=== PATIENT | male | born 1975 | race Caucasian/White ===

== ENCOUNTER 2021-11-10 20:14 | Emergency (ER) | payer OTHER ==
[2021-11-10 20:27] VITALS: TEMP 98.9
[2021-11-10 20:35] VITALS: RESP 16
[2021-11-10 21:02] VITALS: BP 153/91
[2021-11-10] MEDS ORDERED: SODIUM CHLORIDE 0.9% 50 ML IVPB ONE (21:15)
[2021-11-10] MEDS ORDERED: BAMLANIVIMAB (EUA) 700 MG, ETESEVIMAB (EUA) 1,400 MG in SODIUM CHLORIDE 0.9% 50 ML IVPB ONE (21:30)
--- NOTE | 2021-11-10 21:32 | ED ---
General Adult HPI - General Chief complaint: Upper Respiratory Infection Stated complaint: Chills, No taste and smell Time Seen by Provider: 11/10/21 20:29 Source: patient, RN notes reviewed Mode of arrival: ambulatory Limitations: no limitations - History of Present Illness Initial comments: 46-year-old male presents to the emergency room for a chief complaint of possible COVID-19. Patient states he was exposed by his friends a few days ago. Patient states yesterday he started to have chills and body aches. He states he lost his taste and smell. He denies shortness of breath or chest pain. Patient states he wants to be tested and if he has positive get the antibody infusion.Patient has no other complaints at this time including shortness of breath, chest pain, abdominal pain, nausea or vomiting, headache, or visual changes. - Related Data Allergies Allergy/AdvReac Type Severity Reaction Status Date / Time No Known Allergies Allergy Verified 11/10/21 20:24 Review of Systems ROS Statement: Those systems with pertinent positive or pertinent negative responses have been documented in the HPI. ROS Other: All systems not noted in ROS Statement are negative. Past Medical History Past Medical History: No Reported History History of Any Multi-Drug Resistant Organisms: None Reported Past Surgical History: Appendectomy, Orthopedic Surgery Past Psychological History: No Psychological Hx Reported Smoking Status: Former smoker Past Alcohol Use History: None Reported Past Drug Use History: Marijuana General Exam Limitations: no limitations General appearance: alert, in no apparent distress Head exam: Present: atraumatic Eye exam: Present: normal appearance, PERRL, EOMI. Absent: scleral icterus, conjunctival injection ENT exam: Present: normal exam, mucous membranes moist Neck exam: Present: normal inspection, full ROM. Absent: tenderness Respiratory exam: Present: normal lung sounds bilaterally. Absent: respiratory distress, wheezes Cardiovascular Exam: Present: regular rate, normal rhythm, normal heart sounds Course Vital Signs 11/10/21 11/10/21 11/10/21 20:24 20:34 21:02 Temperature 98.9 F Pulse Rate 81 Respiratory 20 16 Rate Blood Pressure 136/84 153/91 O2 Sat by Pulse 96 Oximetry Medical Decision Making - Medical Decision Making Vitals are stable. Patient is 96% on room air. He is well-appearing. He has minimal symptoms of COVID-19 since yesterday. He did test positive. He was given antibody infusion and monitored for 1 hour. stable for outpatient follow- up. Patient discharged home with strict return parameters. - Lab Data Lab Results 11/10/21 Range/Units 20:34 Coronavirus (PCR) Detected A (Not Detectd) Disposition Clinical Impression: COVID-19 Disposition: HOME SELF-CARE Condition: Good Instructions (If sedation given, give patient instructions): Coronavirus Disease 2019 (COVID-19) Additional Instructions: Please take Motrin and Tylenol for fevers or body aches. Take vitamin C, D, and zinc. Follow-up with your doctor in one to 2 days. Return to the emergency room for any worsening symptoms. Is patient prescribed a controlled substance at d/c from ED?: No Referrals: Gamal Emerson Jr, DO [Primary Care Provider] - 1-2 days Time of Disposition: 21:31
[2021-11-10 22:20] VITALS: PULSE 70
== END 2021-11-10 22:19 | disposition home or self-care (01) ==
LOC: EC 20:14
DX: U07.1 COVID-19 (principal); Z87.891 Personal history of nicotine dependence
CPT/HCPCS: 87635; 99283; J3490

== ENCOUNTER 2023-10-24 18:02 | Emergency (ER) | payer OTHER ==
--- NOTE | 2023-10-24 19:15 | ED ---
Recheck HPI - General Chief Complaint: Recheck/Abnormal Lab/Rx Stated Complaint: possible parasite in stool Time Seen by Provider: 10/24/23 19:11 Source: patient, RN notes reviewed Mode of arrival: ambulatory Limitations: no limitations - History of Present Illness Initial Comments: This is a 48 year old male who presents to the emergency department for concerns of roundworms. He reports feeling generally unwell and experiencing weight loss. His was evaluated here earlier today and given a prescription for medication management of the worms. He returns requesting the same treatment. MD Complaint: other (Stool parasite) - Related Data Home Medications Medication Instructions Recorded Confirmed Ascorbic Acid [Vitamin C] 1,000 mg PO DAILY 11/10/21 11/10/21 Previous Rx's Medication Instructions Recorded Albendazole [Albenza] 200 mg PO BID #14 tablet 10/24/23 Ivermectin 15 mg PO ONCE #5 tablet 10/24/23 Allergies Allergy/AdvReac Type Severity Reaction Status Date / Time No Known Allergies Allergy Verified 10/24/23 19:09 Review of Systems ROS Statement: Those systems with pertinent positive or pertinent negative responses have been documented in the HPI. ROS Other: All systems not noted in ROS Statement are negative. Past Medical History Past Medical History: No Reported History History of Any Multi-Drug Resistant Organisms: None Reported Past Surgical History: Appendectomy, Orthopedic Surgery Additional Past Surgical History / Comment(s): nasal Past Psychological History: No Psychological Hx Reported Smoking Status: Former smoker Past Alcohol Use History: None Reported Past Drug Use History: Marijuana General Exam Limitations: no limitations General appearance: alert, in no apparent distress Head exam: Present: atraumatic, normocephalic, normal inspection Respiratory exam: Present: normal lung sounds bilaterally. Absent: respiratory distress, wheezes, rales, rhonchi, stridor Cardiovascular Exam: Present: regular rate, normal rhythm, normal heart sounds. Absent: systolic murmur, diastolic murmur, rubs, gallop, clicks GI/Abdominal exam: Present: soft, normal bowel sounds. Absent: distended, tenderness, guarding, rebound, rigid Neurological exam: Present: alert, oriented X3, CN II-XII intact Psychiatric exam: Present: normal affect, normal mood Skin exam: Present: warm, dry, intact, normal color. Absent: rash Course Vital Signs 10/24/23 19:05 Temperature 98.3 F Pulse Rate 70 Respiratory 18 Rate Blood Pressure 128/75 O2 Sat by Pulse 96 Oximetry Medical Decision Making - Medical Decision Making This is a 48 year old male who presents to the emergency department for concerns of parasites in his stool. Was pt. sent in by a medical professional or institution? @ -No Did you speak to anyone other than the patient for history? @ -No Did you review nursing and triage notes? @ -Yes, and I agree, it is accurate with regards to the patient's symptoms. Were old charts reviewed? @ -No Differential Diagnosis? @ -Differential Fatigue: Viral infection, bacterial infection, parasitic infection, this is not meant to be an all-inclusive list EKG interpreted by me (3pts min.)? @ -Not obtained X-rays interpreted by me (1pt min.)? @ -Not obtained CT interpreted by me (1pt min.)? @ -Not obtained U/S interpreted by me (1pt. min.)? @ -Not obtained What testing was considered but not performed? (CT, X-rays, U/S, labs)? Why? @ -None What meds were considered but not given? Why? @ -None Did you discuss the management of the patient with other professionals? @ -No Did you reconcile home meds? @ -No Was smoking cessation discussed for >3mins.? @ -No Was critical care preformed (if so, how long)? @ -No Were there social determinants of health that impacted care today? How? (Homelessness, low income, unemployed, alcoholism, drug addiction, transportation, low edu. Level, literacy, decrease access to med. care, [facility], rehab)? @ -No Was there de-escalation of care discussed even if they declined? (Discuss DNR or withdrawal of care, Hospice)? @ -No What co-morbidities impacted this encounter? (DM, HTN, Smoking, COPD, CAD, Cancer, CVA, Hep., AIDS, mental health diagnosis, sleep apnea, morbid obesity)? @ -None Was patient admitted / discharged? @ -Discharged. Patient's was treated with Albendazole, Ivermectin, and Mebendazole. However, their insurance will not cover the mebendazole and he requests to proceed with just the other two medications. Rx for Albendazole and Ivermectin provided with dosing instructions reviewed. Otherwise advised follow up with his PCP. Undiagnosed new problem with uncertain prognosis? @ -None Drug Therapy requiring intensive monitoring for toxicity (Heparin, Nitro, Insulin, Cardizem)? @ -None Were any procedures done? @ -None Diagnosis/symptom? @ -Roundworm Acute, or Chronic, or Acute on Chronic? @ -Acute Uncomplicated (without systemic symptoms) or Complicated (systemic symptoms)? @ -Uncomplicated Side effects of treatment? @ -None Exacerbation, Progression, or Severe Exacerbation] @ -Not applicable Poses a threat to life or bodily function? @ -No Return precautions reviewed in depth, the patient is instructed to return to the emergency department with any new, worsening, or concerning symptoms. Patient verbalized understanding. This case was discussed in detail with the attending ED physician, Dr. Sykes. Presentation, findings, and treatment plan discussed in detail as well. Disposition Clinical Impression: Roundworm infection Disposition: HOME SELF-CARE Additional Instructions: Return to the emergency department with any new, worsening, or concerning symptoms. Prescriptions: Albendazole [Albenza] 200 mg PO BID #14 tablet Ivermectin 15 mg PO ONCE #5 tablet Is patient prescribed a controlled substance at d/c from ED?: No Referrals: Gamal Emerson Jr, [Primary Care Provider] - 1-2 days
[2023-10-24 19:20] VITALS: BP 128/75; PULSE 70; RESP 18; TEMP 98.3
== END 2023-10-24 20:01 | disposition home or self-care (01) ==
LOC: EC 18:02
DX: B82.0 Intestinal helminthiasis, unspecified (principal); Z87.891 Personal history of nicotine dependence; F12.90 Cannabis use, unspecified, uncomplicated
CPT/HCPCS: 99282